=== PATIENT | female | born 1965 | race Caucasian/White ===

== ENCOUNTER 2016-11-04 05:21 | Day surgery (SDC) | payer OTHER ==
[2016-10-30 11:03] VITALS: BMI 27.4
[2016-11-04] MEDS ORDERED: MIDAZOLAM HCL 2 MG/2 ML SINGLE DOSE VIAL ONE (12:24)
[2016-11-04] MEDS ORDERED: PROPOFOL 20 ML ONE ×2 (12:25→13:10)
[2016-11-04] MEDS ORDERED: LIDOCAINE HCL 2% 100 MG/5 ML DISP.SYRIN ONE (12:46)
[2016-11-04] MEDS ORDERED: DEXAMETHASONE SOD PHOSPHATE 4 MG/1 ML VIAL ONE (12:50)
[2016-11-04] MEDS ORDERED: KETOROLAC TROMETHAMINE 30 MG/1 ML VIAL ONE (12:54)
[2016-11-04] MEDS ORDERED: PROMETHAZINE HCL 25 MG/1 ML VIAL IVPUSH PRN (13:27)
[2016-11-04] MEDS ORDERED: ONDANSETRON 4 MG/2 ML VIAL IVPUSH PRN (13:27)
[2016-11-04] MEDS ORDERED: LACTATED RINGERS SOLUTION 1,000 ML IV SCH (13:30)
--- NOTE | 2016-11-04 13:41 | HP ---
History & Physical Update - History History: No Change - Physical Physical: No Change - Assessment Assessment: No Change - Plan Plan: No Change
--- NOTE | 2016-11-04 13:50 | OP ---
Operative Note - Note: Operative Date: 11/04/16 Pre-Operative Diagnosis: Submucosal myoma. Leiomyomatous Uterus Operation: Hysteroscopic myomectomy. Suction DC Findings: Submucosal myoma Post-Operative Diagnosis: Same as Pre-op Surgeon: Rosaura Aponte Anesthesia: General Estimated Blood Loss (mls): 40 Operative Report Dictated: Yes
[2016-11-04 14:50] VITALS: TEMP 98.2
[2016-11-04] MEDS ORDERED: IBUPROFEN 400 MG TABLET (FP) PO PRN (15:31)
[2016-11-04] MEDS ORDERED: ACETAMINOPHEN 325 MG TABLET (FP) PO PRN (15:31)
[2016-11-04 16:28] VITALS: BP 136/72; PULSE 66
--- NOTE | 2016-11-04 21:38 | OP ---
DATE OF OPERATION: 11/04/2016 PREOPERATIVE DIAGNOSIS: Submucosal myoma, leiomyomatous uterus. OPERATION: Hysteroscopic myomectomy, suction dilation and curettage. FINDINGS: Submucosal myoma. POSTOPERATIVE DIAGNOSIS: Submucosal myoma, leiomyomatous uterus. SURGEON: Rosaura Aponte MD ANESTHESIA: General. ANESTHESIOLOGIST: Hosea Antunez MD ESTIMATED BLOOD LOSS: 400 mL. PROCEDURE: Patient was taken to the operating room, placed in dorsal lithotomy position, prepped and draped in the usual sterile fashion. Speculum was placed in the vagina. Anterior lip of cervix grasped with a single-tooth tenaculum. Hysteroscope was then inserted and visualization revealed an anterior submucosal myoma. Cervix was then dilated again for the operative hysteroscope. Operative scope was inserted and cautery and cutting of the anterior aspect of the uterine wall was done and large amount of myoma tissue was then cauterized and removed. Suction D&C was then performed. Visualization revealed a more normal endometrial cavity. All instruments were then removed. Patient had tolerated procedure well. Estimated blood loss was 40 mL. ROSAURA APONTE M.D. RONDA/[id number]
--- NOTE | 2016-11-06 13:58 | PATH ---
Surgical Pathology Report Patient Name: KAITLIN MONZON [facility]. Rec. #: [id number] /Age/Gender: 1965 (Age: 51) / F Account: [id number] Location: [facility] Taken: 11/04/2016 Received: 11/05/2016 Reported: 11/06/2016 Physicians: Rosaura Aponte M.D. Specimen(s) Received A: FIBROID OF UTERUS/SUBMUCOSAL MYOMA B: ENDOMETRIAL CURETTINGS Clinical History Menorrhagia, submucosal myoma Final Diagnosis A. FIBROID OF UTERUS/SUBMUCOSAL MYOMA, HYSTEROSCOPIC MYOMECTOMY: FRAGMENTS OF BENIGN SMOOTH MUSCLE AND DISORDERED PROLIFERATIVE ENDOMETRIUM SUGGESTIVE OF SUBMUCOSAL LEIOMYOMA/ADENOMYOSIS/ADENOMYOMA. B. ENDOMETRIUM, CURETTAGE: FRAGMENTS OF WEAKLY PROLIFERATIVE ENDOMETRIUM. FRAGMENTS OF BENIGN SMOOTH MUSCLE. SCANT FRAGMENTS OF BENIGN SQUAMOUS EPITHELIUM. Electronically Signed Allen Cantor M.D. Gross Description A. Received in formalin labeled "fibroid of uterus" is a 1 g, 1.7 x 1.4 x 0.3 cm aggregate of multiple smith, firm to rubbery portions of tissue, consistent with a morcellated fibroid. The specimen is entirely submitted in one cassette. B. Received in formalin labeled "endometrial curettings" is a 0.6 x 0.5 x 0.2 cm aggregate of smith soft tissue fragments. The formalin is filtered and the specimen is entirely submitted in one cassette. /11/05/2016 saudi11/05/2016
== END 2016-11-04 16:15 | disposition home or self-care (01) ==
LOC: JASU-SURG 05:21
PROVIDERS: ATTEND Obstetrics & Gynecology
PROC: 0UDB8ZZ Extraction of Endometrium, Via Natural or Artificial Opening Endoscopic (ICD-10-PCS; principal; 2016-11-04 12:00)
PROC: 0UB98ZZ Excision of Uterus, Via Natural or Artificial Opening Endoscopic (ICD-10-PCS; 2016-11-04 12:00)
DX: D25.0 Submucous leiomyoma of uterus (principal)
CPT/HCPCS: 84703; 88305-TC; 94760

== ENCOUNTER 2018-03-03 14:25 | Emergency (ER) | payer OTHER ==
[2018-03-03 14:42] VITALS: BP 134/74; PULSE 82; TEMP 98; BMI 28.3
--- NOTE | 2018-03-03 14:42 | PDOC ---
Rapid Medical Evaluation Chief Complaint: Pain Time Seen by Provider: 03/03/18 14:39 Medical Evaluation: Allergies Allergy/AdvReac Type Severity Reaction Status Date / Time No Known Allergies Allergy Verified 10/30/16 10:53 03/03/18 14:40 I have performed a brief in-person evaluation of this patient. The patient presents with a chief complaint of: L foot/heel pain X several months, no trauma Pertinent physical exam findings:+ pain in planter aspect, no obvious deformity I have ordered the following:xray The patient will proceed to the ED for further evaluation. Discharge Disposition - Diagnosis Foot pain, left - Referrals - Patient Instructions - Post Discharge Activity
--- NOTE | 2018-03-03 15:04 | PDOC ---
History of Present Illness - General Chief Complaint: Pain Stated Complaint: left heel pain Time Seen by Provider: 03/03/18 14:39 - History of Present Illness Initial Comments: 53-year-old female without comorbidities presents for evaluation of one month of atraumatic left foot pain. She points to the plantar aspect of the left foot as the area of his discomfort. She states her pain is worse in the morning. 03/03/18 15:02 Past History - Past Medical History Allergies/Adverse Reactions: Allergies Allergy/AdvReac Type Severity Reaction Status Date / Time No Known Allergies Allergy Verified 03/03/18 14:42 Home Medications: Ambulatory Orders NK [No Known Home Medication] 03/03/18 Hypercholesterolemia: Yes (no meds) - Surgical History Abdominal Surgery: Yes - Suicide/Smoking/Psychosocial Hx Smoking History: Never smoked Have you smoked in the past 12 months: No Information on smoking cessation initiated: No Hx Alcohol Use: No Drug/Substance Use Hx: No Substance Use Type: None Hx Substance Use Treatment: No Review of Systems - Review of Systems Musculoskeletal: Yes: See HPI, Joint Pain All Other Systems: Reviewed and Negative *Physical Exam - Vital Signs Last Vital Signs Temp Pulse Resp BP Pulse Ox 98.0 F 82 16 134/74 100 03/03/18 14:39 03/03/18 14:39 03/03/18 14:39 03/03/18 14:39 03/03/18 14:39 - Physical Exam Comments: Left ankle skin color and temperature are normal no tenderness. Thigh and calf is soft and nontender. Left foot skin color and temperature are normal. She has tenderness about the medial tubercle of the calcaneus. No other areas of tenderness. She has no gross sensorimotor deficits she is neurovascular intact. 03/03/18 15:02 Medical Decision Making - Medical Decision Making Left foot x-rays show osteopenia and a calcaneal bone spur no acute fracture trauma or distractive process 03/03/18 15:03 *DC/Admit/Observation/Transfer Diagnosis at time of Disposition: Foot pain, left - Discharge Dispostion Disposition: HOME Condition at time of disposition: Stable Decision to Admit order: No - Referrals Referrals: Maxime Azevedo MD [Staff Physician] - - Patient Instructions Printed Discharge Instructions: Plantar Fasciitis, DI for Plantar Fasciitis, Get Back in the Game after Plantar Fasciitis Additional Instructions: Your x-rays today were normal but they did show bone spur in her heel which may be causing her pain. Return to the emergency room should symptoms worsen or go unresolved. However you do need to follow-up with orthopedic surgery for further evaluation and treatment options. Should follow-up with orthopedic surgery once 2 days - Post Discharge Activity
== END 2018-03-03 15:25 | disposition home or self-care (01) ==
LOC: JERFT 14:25
DX: M85.872 Other specified disorders of bone density and structure, left ankle and foot (principal); M77.32 Calcaneal spur, left foot
CPT/HCPCS: 73630-TC-LT; 99281-25

== ENCOUNTER 2020-08-13 14:29 | Emergency (ER) | payer OTHER ==
[2020-08-13 14:35] VITALS: BP 152/66; PULSE 65; TEMP 97; BMI 28.3
[2020-08-13] MEDS ORDERED: SODIUM CHLORIDE 0.9% 500 ML INFUS.BAG IV ONE (15:14)
[2020-08-13] MEDS ORDERED: METOCLOPRAMIDE HCL INJECTION 10 MG/2 ML VIAL IVPB ONE (15:14)
[2020-08-13] MEDS ORDERED: METOCLOPRAMIDE HCL INJECTION 10 MG/2 ML VIAL ONE (15:27)
[2020-08-13 15:32] LABS: BASO % 0.5 % (0-2.0); EOS % 2.2 % (0-4.5); HEMOGLOBIN 13.7 GM/dL (10.7-15.3); LYMPH % 25.7 % (8-40); MCH 29.2 pg (25.7-33.7); MCHC 33.4 g/dl (32.0-36.0); MEAN CELL VOLUME 87.5 fl (80-96); MONO % 4.4 % (3.8-10.2); NEUT % 67.2 % (42.8-82.8); PLATELET COUNT 321 K/MM3 (134-434); RBC 4.69 M/mm3 (3.60-5.2); RDW 14.6 % (11.6-15.6); WHITE BLOOD COUNT 8.9 K/mm3 (4.0-10.0)
[2020-08-13 16:05] LABS: CHLORIDE 105 mmol/L (98-107); POTASSIUM 4.3 mmol/L (3.5-5.1); SODIUM 137 mmol/L (136-145)
[2020-08-13 16:08] LABS: CALCIUM 9.3 mg/dL (8.5-10.1)
[2020-08-13 16:09] LABS: ALBUMIN 3.9 g/dl (3.4-5.0); ANION GAP 3 MMOL/L (8-16); CO2 30 mmol/L (21-32); GLUCOSE,RANDOM 85 mg/dL (74-106)
[2020-08-13 16:12] LABS: CREATININE 0.8 mg/dL (0.55-1.3); PHOSPHOROUS 3.7 mg/dL (2.5-4.9); SGOT/AST 20 U/L (15-37); SGPT/ALT 28 U/L (13-61)
[2020-08-13 16:13] LABS: BILIRUBIN,TOTAL 0.4 mg/dL (0.2-1)
[2020-08-13 16:14] LABS: TOT PROT 8.6 g/dl (6.4-8.2)
[2020-08-13 16:15] LABS: ALK PHOS 105 U/L (45-117)
== END 2020-08-13 17:11 | disposition home or self-care (01) ==
LOC: JER 14:29
PROC: 3E033NZ Introduction of Analgesics, Hypnotics, Sedatives into Peripheral Vein, Percutaneous Approach (ICD-10-PCS; principal; 2020-08-13)
PROC: 3E033GC Introduction of Other Therapeutic Substance into Peripheral Vein, Percutaneous Approach (ICD-10-PCS; 2020-08-13)
DX: R20.2 Paresthesia of skin (principal); R53.83 Other fatigue; R00.2 Palpitations
CPT/HCPCS: 36415; 71046-TC-FY; 80053; 82550; 83735; 84100; 84443; 84484; 85025; 93005; 93010; 96374; 96375; 99285-25

== ENCOUNTER 2021-11-29 08:35 | Emergency (ER) | payer OTHER ==
[2021-11-29 09:06] VITALS: BP 131/77; PULSE 63; TEMP 97.9; BMI 31.6
[2021-11-29] MEDS ORDERED: SODIUM CHLORIDE 0.9% 500 ML INFUS.BAG IV ONE (09:22)
[2021-11-29] MEDS ORDERED: METOCLOPRAMIDE HCL INJECTION 10 MG/2 ML VIAL IVPB ONE (09:22)
[2021-11-29] MEDS ORDERED: METOCLOPRAMIDE HCL INJECTION 10 MG/2 ML VIAL ONE (10:05)
[2021-11-29 10:34] LABS: ARTERIAL BLOOD GAS BASE EXCESS 0.3 mmol/L (-2-2); ARTERIAL BLOOD GAS PO2 83.1 mmHg (80-100); ARTERIAL BLOOD GAS pH 7.381 (7.350-7.450)
[2021-11-29 10:39] LABS: ALLENS TEST POSITIVE
== END 2021-11-29 11:57 | disposition home or self-care (01) ==
LOC: JER 08:35
PROC: 3E033GC Introduction of Other Therapeutic Substance into Peripheral Vein, Percutaneous Approach (ICD-10-PCS; principal; 2021-11-29)
DX: R51.9 Headache, unspecified (principal)
CPT/HCPCS: 0241U-QW; 36600; 82375; 82803; 96374; 99284-25

== ENCOUNTER 2022-09-16 10:13 | Observation (INO) | payer OTHER ==
[2022-09-16 10:54] VITALS: BMI 29.6
[2022-09-16] MEDS ORDERED: ASPIRIN 81 MG CHEWABLE TABLETS PO ONE (11:13)
[2022-09-16] MEDS ORDERED: ASPIRIN 81 MG CHEWABLE TABLETS ONE (11:21)
[2022-09-16 11:35] LABS: BASO % 0.3 % (0-2.0); HEMOGLOBIN 13.7 GM/dL (10.7-15.3); LYMPH % 22.4 % (8-40); MCH 28.6 pg (25.7-33.7); MCHC 33.3 g/dl (32.0-36.0); MEAN CELL VOLUME 85.9 fl (80-96); MEAN PLT VOLUME 8.7 fl (7.5-11.1); MONO % 6.7 % (3.8-10.2); NEUT % 69.6 % (42.8-82.8); PLATELET COUNT 302 10^3/uL (134-434); RBC 4.78 M/mm3 (3.60-5.2); RDW 15.1 % (11.6-15.6)
[2022-09-16 11:44] LABS: PROTHROMBIN TIME (PATIENT) 11.6 SEC (9.7-13.0)
[2022-09-16 11:46] LABS: ACTIVATED PTT 30.5 SECONDS (25.2-36.5)
[2022-09-16 12:22] LABS: CALCIUM 9.2 mg/dL (8.5-10.1)
[2022-09-16 12:23] LABS: ALBUMIN 3.5 g/dl (3.4-5.0); BLOOD UREA NITROGEN 10.4 mg/dL (7-18)
[2022-09-16 12:26] LABS: CREATININE 0.7 mg/dL (0.55-1.3)
[2022-09-16 12:27] LABS: BILIRUBIN,TOTAL 0.3 mg/dL (0.2-1); TOT PROT 7.6 g/dl (6.4-8.2)
[2022-09-16] MEDS ORDERED: LIDOCAINE 5% TOPICAL PATCH TP ONE (15:49)
[2022-09-16] MEDS ORDERED: LIDOCAINE 5% TOPICAL PATCH ONE (15:58)
[2022-09-16] MEDS: INSULIN SLIDING SCALE (NOVOLOG) 1 VIAL SQ SCH (16:02)
[2022-09-16] MEDS ORDERED: ACETAMINOPHEN 1000 MG/100 ML BAG IVPB ONE (20:44)
[2022-09-16] MEDS ORDERED: ACETAMINOPHEN INJECTION 100 ML IVPB ONE (20:44)
[2022-09-16] MEDS ORDERED: LIDOCAINE PATCH REMOVAL MC SCH (22:00)
[2022-09-17] MEDS ORDERED: ACETAMINOPHEN 325 MG TABLET (FP) PO PRN (01:10)
[2022-09-17] MEDS: INSULIN SLIDING SCALE (NOVOLOG) 1 VIAL SQ SCH ×2 (06:17→12:32)
[2022-09-17] MEDS ORDERED: ASPIRIN COATED 81 MG TABLET.EC PO SCH (10:00)
[2022-09-17] MEDS ORDERED: LOSARTAN POTASSIUM 25 MG TABLET PO SCH (10:00)
[2022-09-17] MEDS ORDERED: PANTOPRAZOLE 40 MG TABLET PO SCH (10:00)
[2022-09-17 10:18] VITALS: RESP 20; TEMP 97.4
[2022-09-17 15:50] VITALS: BP 148/78; PULSE 116
== END 2022-09-17 16:00 | disposition home or self-care (01) ==
LOC: JER 10:13 → JERBED 11:13 → J4W 21:05
PROVIDERS: ADMIT Internal Medicine; ATTEND Internal Medicine
PROC: 3E033NZ Introduction of Analgesics, Hypnotics, Sedatives into Peripheral Vein, Percutaneous Approach (ICD-10-PCS; principal; 2022-09-16)
DX: I25.10 Atherosclerotic heart disease of native coronary artery without angina pectoris (principal); I11.9 Hypertensive heart disease without heart failure; I10 Essential (primary) hypertension; E78.5 Hyperlipidemia, unspecified; E11.9 Type 2 diabetes mellitus without complications
CPT/HCPCS: 0241U-QW; 36415; 71045-TC-FY; 78452-TC; 80053; 82550; 82962; 84484; 85025; 85610; 85730; 93005; 93010; 93017; 93306-TC; 96374; 99285-25; A9502; G0378

== ENCOUNTER 2023-10-13 23:54 | Emergency (ER) | payer OTHER ==
[2023-10-14 00:04] VITALS: BP 140/62; PULSE 65; RESP 18; TEMP 97.6; BMI 30.5
[2023-10-14] MEDS ORDERED: KETOROLAC TROMETHAMINE 30 MG/1 ML VIAL ONE (02:10)
[2023-10-14] MEDS: KETOROLAC TROMETHAMINE 30 MG/1 ML VIAL IM ONE (02:29)
== END 2023-10-14 06:38 | disposition home or self-care (01) ==
LOC: JER 23:54
PROC: 3E0233Z Introduction of Anti-inflammatory into Muscle, Percutaneous Approach (ICD-10-PCS; principal; 2023-10-14)
DX: M54.9 Dorsalgia, unspecified (principal); R07.9 Chest pain, unspecified; S20.01XA Contusion of right breast, initial encounter; W01.198A Fall on same level from slipping, tripping and stumbling with subsequent striking against other object, initial encounter
CPT/HCPCS: 71250-TC; 99284-25

== ENCOUNTER 2023-12-03 08:42 | Emergency (ER) | payer OTHER ==
[2023-12-03 08:52] VITALS: RESP 18; BMI 29.0
[2023-12-03] MEDS ORDERED: ACETAMINOPHEN INJECTION 100 ML IVPB ONE (09:25)
[2023-12-03] MEDS: SODIUM CHLORIDE 0.9% 500 ML INFUS.BAG IV ONE (09:52)
[2023-12-03] MEDS: ACETAMINOPHEN 1000 MG/100 ML BAG IVPB ONE (09:52)
[2023-12-03 10:00] LABS: BASO % 0.3 % (0-2.0); EOS % 0.8 % (0-4.5); HEMATOCRIT 37.6 % (32.4-45.2); HEMOGLOBIN 12.7 GM/dL (10.7-15.3); LYMPH % 20.9 % (8-40); MCH 29.1 pg (25.7-33.7); MCHC 33.7 g/dl (32.0-36.0); MEAN CELL VOLUME 86.3 fl (80-96); MONO % 9.4 % (3.8-10.2); NEUT % 68.6 % (42.8-82.8); PLATELET COUNT 284 10^3/uL (134-434); RBC 4.35 M/mm3 (3.60-5.2); RDW 14.4 % (11.6-15.6); WHITE BLOOD COUNT 6.9 K/mm3 (4.0-10.0)
[2023-12-03 10:18] LABS: POTASSIUM 4.4 mmol/L (3.5-5.1)
[2023-12-03 10:21] LABS: ALBUMIN 3.3 g/dl (3.4-5.0); BLOOD UREA NITROGEN 5.5 mg/dL (7-18); CALCIUM 8.7 mg/dL (8.5-10.1)
[2023-12-03 10:24] LABS: CREATININE 0.6 mg/dL (0.55-1.3)
[2023-12-03 10:26] LABS: BILIRUBIN,TOTAL 0.3 mg/dL (0.2-1); TOT PROT 7.4 g/dl (6.4-8.2)
[2023-12-03 11:15] LABS: EPI CELLS 15 /uL (0-25.1); HYALINE CASTS 0 /uL (0-3.1); URINE APPEARANCE CLEAR; URINE BACTERIA 61 /uL (0-1359); URINE BILIRUBIN NEGATIVE (NEGATIVE); URINE COLOR YELLOW; URINE GLUCOSE (UA) NEGATIVE (NEGATIVE); URINE KETONE NEGATIVE (NEGATIVE); URINE LEUK ESTERASE TRACE (NEGATIVE); URINE NITRITE NEGATIVE (NEGATIVE); URINE PROTEIN NEGATIVE (NEGATIVE); URINE RBC 12 /uL (0-23.9); URINE UROBILINOGEN 0.2 mg/dL (0.2-1.0); URINE WBC 15 /uL (0-25.8)
[2023-12-03 12:09] VITALS: BP 112/62; PULSE 60; TEMP 97.9
== END 2023-12-03 12:41 | disposition home or self-care (01) ==
LOC: JER 08:42
PROC: 3E033NZ Introduction of Analgesics, Hypnotics, Sedatives into Peripheral Vein, Percutaneous Approach (ICD-10-PCS; principal; 2023-12-03)
DX: R10.32 Left lower quadrant pain (principal); R19.7 Diarrhea, unspecified; R53.83 Other fatigue; R51.9 Headache, unspecified; Z20.822 Contact with and (suspected) exposure to COVID-19
CPT/HCPCS: 0241U-QW; 36415; 80053; 81003; 83690; 85025; 87077; 87086; 99284-25; J0131

== ENCOUNTER 2024-02-22 09:54 | Emergency (ER) | payer OTHER ==
[2024-02-22 09:59] VITALS: BP 139/68; PULSE 64; RESP 18; TEMP 98.4; BMI 30.9
[2024-02-22] MEDS ORDERED: KETOROLAC TROMETHAMINE 30 MG/1 ML VIAL ONE (10:47)
[2024-02-22] MEDS ORDERED: ACETAMINOPHEN 500 MG TABLET (FP) ONE (10:48)
[2024-02-22] MEDS: ACETAMINOPHEN 500 MG TABLET (FP) PO ONE (12:02)
[2024-02-22] MEDS: KETOROLAC TROMETHAMINE 30 MG/1 ML VIAL IM ONE (12:02)
== END 2024-02-22 12:03 | disposition home or self-care (01) ==
LOC: JER 09:54 → JERFT 09:54
PROC: 3E0233Z Introduction of Anti-inflammatory into Muscle, Percutaneous Approach (ICD-10-PCS; principal; 2024-02-22)
DX: M79.10 Myalgia, unspecified site (principal); R05.9 Cough, unspecified; R53.83 Other fatigue; B34.9 Viral infection, unspecified; Z20.822 Contact with and (suspected) exposure to COVID-19
CPT/HCPCS: 0241U-QW; 99284-25

== ENCOUNTER 2024-07-05 04:32 | Day surgery (SDC) | payer OTHER ==
[2024-07-05] MEDS ORDERED: PHENAZOPYRIDINE HCL 100 MG TABLET (FP) ONE (06:45)
[2024-07-05] MEDS: PHENAZOPYRIDINE HCL 100 MG TABLET (FP) PO ONE (06:51)
[2024-07-05] MEDS ORDERED: ONDANSETRON 4 MG/2 ML VIAL ONE (07:04)
[2024-07-05] MEDS ORDERED: DEXAMETHASONE SOD PHOSPHATE 4 MG/1 ML VIAL ONE (07:04)
[2024-07-05] MEDS ORDERED: ceFAZolin SODIUM 1 GM VIAL ONE (07:04)
[2024-07-05] MEDS ORDERED: KETOROLAC TROMETHAMINE 30 MG/1 ML VIAL ONE (07:04)
[2024-07-05] MEDS ORDERED: ROCURONIUM BROMIDE 50 MG/5 ML SYRINGE ONE ×2 (07:05→08:30)
[2024-07-05] MEDS ORDERED: MIDAZOLAM HCL 2 MG/2 ML SINGLE DOSE VIAL ONE (07:05)
[2024-07-05] MEDS ORDERED: SUGAMMADEX SODIUM 200 MG/2 ML VIAL ONE (07:05)
[2024-07-05] MEDS ORDERED: PROPOFOL 20 ML ONE (07:05)
[2024-07-05] MEDS ORDERED: ONDANSETRON 4 MG/2 ML VIAL IVPUSH PRN ×2 (07:28→10:04)
[2024-07-05] MEDS ORDERED: oxyCODONE HCL 5 MG TABLET PO PRN ×4 (07:28→10:17)
[2024-07-05] MEDS ORDERED: LIDOCAINE HCL/PF 2% SDV 5ML VIAL ONE (07:42)
[2024-07-05] MEDS: ceFAZolin SODIUM 1 GM VIAL IVPB ONE (07:55)
[2024-07-05] MEDS ORDERED: TRANEXAMIC ACID 1000 MG/10 ML VIAL ONE (08:11)
[2024-07-05] MEDS ORDERED: ACETAMINOPHEN INJECTION 100 ML ONE (08:17)
[2024-07-05] MEDS ORDERED: HYDROmorphone HCl 2 MG/ML VIAL ONE (08:48)
[2024-07-05] MEDS: LACTATED RINGERS SOLUTION 1,000 ML IV SCH (09:50)
[2024-07-05] MEDS ORDERED: BISACODYL 5 MG TABLET.DR (FP) PO PRN (10:04)
[2024-07-05] MEDS: CEFAZOLIN 2 GM in DEXTROSE 5%-WATER - 100 ML IVPB ONE (10:11)
[2024-07-05] MEDS: TRANEXAMIC ACID 1000 MG/10 ML VIAL IVPUSH ONE (10:12)
[2024-07-05] MEDS: ACETAMINOPHEN 1000 MG/100 ML BAG IVPB ONE (10:12)
[2024-07-05] MEDS: ACETAMINOPHEN 1000 MG/100 ML BAG IVPB SCH (10:30)
[2024-07-05] MEDS: IBUPROFEN 800 MG/8 ML IJ IVPB SCH (17:41)
[2024-07-05] MEDS: CEFAZOLIN 1 GM/D5W 1 GM/50 ML BAG IVPB SCH (17:41)
[2024-07-05 19:13] LABS: HEMATOCRIT 36.5 % (32.4-45.2); HEMOGLOBIN 11.9 GM/dL (10.7-15.3); MCH 28.7 pg (25.7-33.7); MCHC 32.5 g/dl (32.0-36.0); MEAN CELL VOLUME 88.4 fl (80-96); MEAN PLT VOLUME 7.9 fl (7.5-11.1); PLATELET COUNT 305 10^3/uL (134-434); RBC 4.13 M/mm3 (3.60-5.2); RDW 15.3 % (11.6-15.6); WHITE BLOOD COUNT 10.1 K/mm3 (4.0-10.0)
[2024-07-05 19:35] LABS: POTASSIUM 4.6 mmol/L (3.5-5.1)
[2024-07-05 19:42] LABS: BLOOD UREA NITROGEN 14.2 mg/dL (7-18)
[2024-07-05 19:45] LABS: CREATININE 0.9 mg/dL (0.55-1.3)
[2024-07-05] MEDS: DOCUSATE SODIUM 100 MG CAPSULE (FP) PO PRN (21:22)
[2024-07-05] MEDS: SIMETHICONE 80 MG TAB.CHEW (FP) PO PRN (21:22)
[2024-07-06 01:59] VITALS: RESP 18
[2024-07-06 08:25] LABS: HEMATOCRIT 34.7 % (32.4-45.2); MCH 28.3 pg (25.7-33.7); MCHC 31.8 g/dl (32.0-36.0); MEAN CELL VOLUME 89.2 fl (80-96); MEAN PLT VOLUME 8.2 fl (7.5-11.1); PLATELET COUNT 285 10^3/uL (134-434); RBC 3.89 M/mm3 (3.60-5.2); RDW 15.6 % (11.6-15.6); WHITE BLOOD COUNT 9.6 K/mm3 (4.0-10.0)
[2024-07-06 08:41] LABS: POTASSIUM 4.1 mmol/L (3.5-5.1)
[2024-07-06 08:42] LABS: CALCIUM 8.6 mg/dL (8.5-10.1)
[2024-07-06 08:43] LABS: BLOOD UREA NITROGEN 9.3 mg/dL (7-18)
[2024-07-06 08:46] LABS: CREATININE 0.6 mg/dL (0.55-1.3)
[2024-07-06] MEDS ORDERED: IBUPROFEN 600 MG TABLET (FP) PO PRN (09:00)
[2024-07-06] MEDS: ACETAMINOPHEN 500 MG TABLET (FP) PO PRN (09:13)
[2024-07-06] MEDS: ENOXAPARIN NA (PORCINE) 40 MG/0.4 ML DISP.SYRIN SQ SCH (09:14)
[2024-07-06 09:51] VITALS: BP 142/84; PULSE 71; TEMP 97.7
== END 2024-07-06 11:08 | disposition home or self-care (01) ==
LOC: JASUSAT 04:32 → J3W 12:46 → JASUSAT 07-06 11:08
PROVIDERS: ATTEND Obstetrics & Gynecology
PROC: 0DNW4ZZ Release Peritoneum, Percutaneous Endoscopic Approach (ICD-10-PCS; 2024-07-05)
PROC: 8E0W4CZ Robotic Assisted Procedure of Trunk Region, Percutaneous Endoscopic Approach (ICD-10-PCS; 2024-07-05)
PROC: 0UT9FZZ Resection of Uterus, Via Natural or Artificial Opening With Percutaneous Endoscopic Assistance (ICD-10-PCS; principal; 2024-07-05 07:30)
PROC: 0UT7FZZ Resection of Bilateral Fallopian Tubes, Via Natural or Artificial Opening With Percutaneous Endoscopic Assistance (ICD-10-PCS; 2024-07-05 07:30)
DX: D25.9 Leiomyoma of uterus, unspecified (principal); N73.6 Female pelvic peritoneal adhesions (postinfective)
CPT/HCPCS: 58552; S2900; 36415; 80048; 82962; 85027; 86850; 86900; 86901; 88305-TC; 88307-TC; 94760; J0131